=== PATIENT | female | born 1985 | race Hispanic/Latino ===

== ENCOUNTER 2024-06-13 17:14 | Emergency (ER) | payer OTHER, SELFPAY ==
[2024-06-13 17:21] VITALS: BP 113/75
[2024-06-13 17:25] VITALS: BP 113/75
[2024-06-13] MEDS: BENADRYL 25 MG IV (17:27)
[2024-06-13] MEDS: DECADRON 8 MG IV (17:27)
[2024-06-13] MEDS: PEPCID 20 MG IV (17:28)
[2024-06-13] MEDS: ADRENALIN 0.3 MG IM (17:31)
[2024-06-13] MEDS: NSS 500 IV (17:31)
[2024-06-13 17:35] VITALS: BMI 45.9
[2024-06-13 17:51] LABS: % Basophils 0.3 % (0-2); % Eosinophils 4.3 % (0-6); % Immature Granulocytes 0.4 % (0-0.5); % Lymphocytes 30.6 % (20.5-51.1); % Monocytes 5.6 % (1.7-9.3); % Neutrophils 58.8 % (42.2-75.2); Absolute Eosinophils 0.3 10^3/uL (0-0.7); Absolute Lymphocytes 2.4 10^3/uL (1.2-3.4); Absolute Monocytes 0.4 10^3/uL (0.1-0.6); Absolute Neutrophils 4.7 10^3/uL (1.4-6.5); Hematocrit 39.8 % (37.0-47.0); Mean Corp Hgb Conc. 32.7 g/dL (33.0-37.0); Mean Corpuscular Hgb 22.1 pg (27.0-31.0); Mean Corpuscular Volume 67.6 fL (81.0-99.0); Mean Platelet Volume 8.2 fL (7.4-10.4); Nucleated Red Blood Cells % 0 %; Platelet Count 389 10^3/uL (130-400); Red Blood Cell Count 5.89 10^6/uL (4.20-5.40); Red Cell Dist. Width 15.4 % (11.5-14.5); White Blood Cell Count 7.9 10^3/uL (4.8-10.8)
[2024-06-13 18:00] VITALS: BP 118/64
[2024-06-13 18:05] LABS: Blood Urea Nitrogen 11 mg/dl (7-17); Calcium 9.7 mg/dl (8.4-10.2); Carbon Dioxide 26 mmol/L (22-30); Chloride 106 mmol/L (98-107); Estimated Creatinine Clearance 112 ml/min; Glucose 101 mg/dl (70-99); Potassium 4.2 mmol/L (3.5-5.1); Sodium 139 mmol/L (135-145); eGFR > 60.00
[2024-06-13 18:07] LABS: HCG, Serum Qualitative Screen Negative
[2024-06-13 18:50] VITALS: BP 128/63
[2024-06-13 19:00] VITALS: BP 123/63
--- NOTE | 2024-06-13 19:45 | ED.GENMED ---
History of Present Illness
General
Chief Complaint: Allergic Reaction
Time Seen by Provider: 06/13/24 17:24
History of Present Illness
History of Present Illness:
Patient started with runny nose itching of her eyes midmorning. Late this afternoon she noted bilateral eye swelling. She had some wheezing prior to ER arrival. She took Benadryl at home. She did use 2 puffs of an inhaler. She has had previous
similar episodes
Past History
Past History
ED Past Medical History: Psychiatric (Depression)
ED Past Surgical History: Cholecystectomy and
Social History
Tobacco: Non-smoker
Personal:
Living: with family
Phy Exam
Physical Exam
Physical Exam:
GENERAL: Alert and oriented in no apparent distress
EYE: Significant chemotic swelling to both periorbital areas. Some conjunctival chemotic injection.
NECK: Supple, no significant adenopathy.
ENT: Pharynx without erythema. No drooling or stridor. Speech normal.
CARDIAC: Regular rate and rhythm without any obvious murmurs.
LUNGS: Clear breath sounds,normal
ABDOMEN: Soft, without focal tenderness or distention
NEUROLOGICAL: Alert and oriented , grossly non-focal
SKIN: Warm and dry, no rash or lesion, no discoloration, skin intact. No hives
MUSCULOSKELETAL: No edema,no deformity.Good color
PSYCH: Normal and appropriate interaction.
Course
Orders/Labs/Results
Orders:
Orders
06/13/24 17:25
Dexamethasone Sod Phosphate [Decadron] 8 mg .ROUTE .STK-MED ONE
Diphenhydramine [Benadryl] 50 mg .ROUTE .STK-MED ONE
Famotidine [Pepcid] 20 mg .ROUTE .STK-MED ONE
06/13/24 17:26
Cardiac Monitoring- Treatment ONCE
IV Insert/Care/Rem.- Treatment PRN
0.9% Sodium Chloride 500 ml [Nss] 500 ml IV BOLUS
Dexamethasone Sod Phosphate [Decadron] 8 mg IV NOW STA
Diphenhydramine [Benadryl] 25 mg IV NOW STA
EPINEPHrine PF [Adrenalin] 0.3 mg IM NOW STA
Famotidine [Pepcid] 20 mg IV NOW STA
Pulse Ox/cont/shift [RESP] Stat
Quantity: 1
06/13/24 17:27
Dexamethasone Sod Phosphate [Decadron] 8 mg IV NOW STA
06/13/24 17:28
Test Result ONCE
06/13/24 17:36
Basic Metabolic Panel Urgent
Complete Blood Count/With Diff Urgent
HCG, Serum Qualitative Screen Urgent
Abnormal Lab Results
06/13/24
17:36
RBC 5.89 H 10^6/uL
(4.20-5.40)
MCV 67.6 L fL
(81.0-99.0)
MCH 22.1 L pg
(27.0-31.0)
MCHC 32.7 L g/dL
(33.0-37.0)
RDW 15.4 H %
(11.5-14.5)
Glucose 101 H mg/dl
(70-99)
06/13/24 17:36
06/13/24 17:36
Vital Signs
Initial and Last Documented VS:
Initial Vital Signs
Pulse Resp BP Pulse Ox
88 12 113/75 96
06/13/24 17:21 06/13/24 17:21 06/13/24 17:21 06/13/24 17:21
Last Documented Vital Signs
Temp Pulse Resp BP Pulse Ox
98.2 F 82 13 118/64 97
06/13/24 17:26 06/13/24 18:00 06/13/24 18:00 06/13/24 18:00 06/13/24 17:30
MDM/Problems Addressed
Differential Diagnosis Includes:
Patient is initially presented with bilateral eye swelling. No airway issues. No other systemic issues. Clinically stable. With previous history is of more severe reactions I did elect to treat with epinephrine additional H1 honey, H2 honey,
steroids.
*Critical Care Note
Total Time (30-74mins, 75-104mins- exclusive of procedures): Not Applicable
Data Reviewed
Review of Other/Old Records Reveals: Labs and Records
Update Note
Update Note:
Patient rechecked multiple times and is doing well. Eye swelling is decreased. Her eyes are able to open. She has remained in no respiratory distress. Airways remain clear. She has no hives. She has no vital sign issues. Clinically stable for
discharge.
Patient instructed to use her EpiPen with any life-threatening type of allergic reaction. She has an EpiPen at home. She did not use it today
ED Attending Note
-
Portions of this chart may have been created with voice recognition software.� Occasional wrong word or��sound alike� substitutions may have occurred due to the inherent limitations of voice recognition software.
Discharge Plan
Departure
Patient Disposition: Home (Routine Discharge)
Date of Disposition: 06/13/24
Time of Disposition: 19:46
Patient with high blood pressure during this ER visit?: No
Discharge Problem:
Acute allergic reaction
Instructions: Allergic Reaction ED
Prescriptions:
New
prednisone 50 mg tablet
50 mg PO DAILY Qty: 4 0RF
No Action
cetirizine 10 mg Tablet
10 mg PO DAILY Qty: 30 0RF
atorvastatin 20 mg tablet
20 mg PO DAILY
Mounjaro 5 mg/0.5 mL pen injector
5 mg SC MO
metformin 500 mg tablet
500 mg PO BIDWMEAL
Referrals:
Annie Brian MD [Family Provider] - Follow up in 2-3 days
Activity Restrictions/Additional Instructions:
Follow-up closely with your primary physician and charge nurse
Take Benadryl or Claritin or Priya for the next few days
Take the Pepcid a day for the next for 5 days
Take prednisone as directed
Interventions
Interventions:
*Risk Screen - Suicide Last Done: 06/13/24 17:37
*General Assessment Last Done: 06/13/24 17:37
*Neglect/Abuse Screening Last Done: 06/13/24 17:37
ED- Fall Risk Assessment Last Done: 06/13/24 17:37
*ED COVID-19 Vaccine History Last Done: 06/13/24 17:37
ED- Cardiac Assessment Last Done: 06/13/24 17:37
ED- Pulmonary Assessment Last Done: 06/13/24 17:38
ED-Skin Assessment Last Done: 06/13/24 17:38
Discharge Date and Time
Print Language: K[place]IL[place]
[2024-06-13 20:00] VITALS: BP 118/58
== END 2024-06-13 20:56 | disposition home or self-care (01) ==
LOC: EMR 17:14
PROVIDERS: EMERGENCY PHYSICIAN Emergency Medicine; FAMILY PHYSICIAN Family Medicine
DX: T78.40XA Allergy, unspecified, initial encounter (principal); X58.XXXA Exposure to other specified factors, initial encounter
CPT/HCPCS: 99284; 96374; 96375 ×2; 96361; 96372; 80048; 84703; 85025; 93005

== ENCOUNTER 2024-09-14 08:48 | Emergency (ER) | payer OTHER, SELFPAY ==
[2024-09-14 08:51] VITALS: BP 132/77
[2024-09-14] MEDS: TORADOL 15 MG IV (09:39)
[2024-09-14 09:55] LABS: Urine Albumin Trace (Neg - Trace); Urine Bilirubin 1+ (Negative); Urine Character Clear (Clear); Urine Color Yellow; Urine Glucose Negative (Negative); Urine Ketone 3+ (Negative); Urine Leukocyte 1+ (Negative); Urine Nitrite Negative (Negative); Urine Occult Blood 4+ (Negative); Urine Urobilinogen 2+ (Neg - 1+); Urine pH 6.5 (5.0-9.0)
--- NOTE | 2024-09-14 09:55 | ED.GENMED ---
History of Present Illness
General
Chief Complaint: Abdominal Pain
Source: patient
Exam Limitations: none
Time Seen by Provider: 09/14/24 09:10
Nursing documentation reviewed up to this point in time: agreed with
History of Present Illness
History of Present Illness:
39-year-old female past medical history of asthma and diabetes presenting to the emergency department today with concerns of diffuse abdominal pain to the mid abdomen with radiation to the low back with associated nausea no vomiting. Does have a
history of cholecystectomy. Denies vomiting diarrhea constipation or fevers.
Past History
Past History
ED Past Medical History: Psychiatric (Depression)
ED Past Surgical History: Cholecystectomy and
Social History
Tobacco: Non-smoker
Personal:
Living: with family
Review of Systems
Review of Systems
Allergies reviewed?: Yes
All Other Systems: ROS reviewed and negative except as documented in HPI and ROS
Phy Exam
Physical Exam
Physical Exam:
GENERAL: Alert , in no apparent distress
EYE: pupils equal and reactive
NECK: Supple, no significant adenopathy.
ENT: o/p clr, mmm.
CARDIAC: Regular rate and rhythm .
LUNGS: Clear breath sounds bilaterally, no acute respiratory distress, no wheezes/rales/rhonchi
ABDOMEN: Vague abdominal discomfort throughout the abdomen mainly to the mid abdomen. No significant CVA tenderness to palpation or percussion.
NEUROLOGICAL: Alert and oriented, no focal neuro deficits
SKIN: Warm and dry, skin intact.
MUSCULOSKELETAL: No edema, well perfused.
PSYCH: Normal and appropriate interaction.
Course
Orders/Labs/Results
Orders:
Orders
09/14/24 09:24
Ketorolac [Toradol] 15 mg IV NOW STA
09/14/24 09:25
CT Abd/Pel (IV only)-DH only Urgent
Comment:
Reason For Exam: mid abd pain, hx oumou
Test Result ONCE
09/14/24 09:31
Complete Blood Count/With Diff Urgent
Comprehensive Metabolic Panel Urgent
HCG, Serum Qualitative Screen Urgent
Lipase Urgent
Urinalysis Reflex To Culture Urgent
Date Specimen was Collected: 09/14/24
Time Specimen was Collected: 09:29
Urine Microscopic Reflex Cult Urgent
Urine Culture Urgent
PEGGY Source: U
Specimen Description:
Date Specimen was Collected: 09/14/24
Time Specimen was Collected:
09/14/24 10:46
Morphine Sulfate 4 mg IV NOW STA
Ondansetron Injectable [Zofran] 4 mg IV NOW STA
09/14/24 11:26
Amoxicillin 875 mg/Clav 125 mg [Augmentin 875 mg/125 mg] 1 tablet PO NOW STA
Abnormal Lab Results
09/14/24
09:31
RBC 5.66 H 10^6/uL
(4.20-5.40)
MCV 67.7 L fL
(81.0-99.0)
MCH 21.7 L pg
(27.0-31.0)
MCHC 32.1 L g/dL
(33.0-37.0)
RDW 15.2 H %
(11.5-14.5)
Absolute Neuts (auto) 6.9 H 10^3/uL
(1.4-6.5)
Creatinine 0.5 L mg/dL
(0.6-1.0)
Urine Ketones 3+ A
(Negative)
Ur Occult Blood Reflex 4+ A
(Negative)
Urine Bilirubin 1+ A
(Negative)
Urine Urobilinogen 2+ A
(Neg - 1+)
Leukocyte Esterase Rfl 1+ A
(Negative)
Urine RBC 7-10 A /HPF
(0-2)
Urine Bacteria (Reflex) Few A
(Negative)
09/14/24 09:31
09/14/24 09:31
Vital Signs
Initial and Last Documented VS:
Initial Vital Signs
Temp Pulse Resp BP Pulse Ox
97.8 F 93 18 132/77 98
09/14/24 08:51 09/14/24 08:51 09/14/24 08:51 09/14/24 08:51 09/14/24 08:51
Last Documented Vital Signs
Temp Pulse Resp BP Pulse Ox
97.8 F 93 18 123/77 93
09/14/24 08:51 09/14/24 08:51 09/14/24 08:51 09/14/24 11:00 09/14/24 11:15
MDM/Problems Addressed
MDM/Problems Addressed:
39-year-old female presenting to the emergency department with concerns of vague diffuse abdominal pain worsening over the past 3 days. Associated nausea no vomiting no changes in bowel movements no fevers. Vital signs are normal upon arrival. CT
scan performed considering the patient's reproducible abdominal pain. She was found to have diverticulitis. She was started on Augmentin and will follow-up closely with GI and her primary care doctor. Otherwise she was found to have an ovarian
cyst she was advised for close gynecology follow-up the next few weeks for reassessment and repeat imaging. Otherwise stable for outpatient management. Return precautions given.
*Critical Care Note
Total Time (30-74mins, 75-104mins- exclusive of procedures): Not Applicable
ED Attending Note
-
Portions of this chart may have been created with voice recognition software.� Occasional wrong word or��sound alike� substitutions may have occurred due to the inherent limitations of voice recognition software.
Discharge Plan
Departure
Patient Disposition: Home (Routine Discharge)
Date of Disposition: 09/14/24
Time of Disposition: 11:27
Patient with high blood pressure during this ER visit?: No
Condition: Good
Covid-19: Not Applicable
Discharge Problem:
Diverticulitis, Ovarian cyst
Instructions: Diverticulitis (DC), Ovarian Cyst (DC)
Prescriptions:
New
amoxicillin-pot clavulanate 875-125 mg tablet
1 tab PO BID 7 Days Qty: 14 0RF
No Action
cetirizine 10 mg Tablet
10 mg PO DAILY Qty: 30 0RF
atorvastatin 20 mg tablet
20 mg PO DAILY
Mounjaro 5 mg/0.5 mL pen injector
5 mg SC MO
metformin 500 mg tablet
500 mg PO BIDWMEAL
prednisone 50 mg tablet
50 mg PO DAILY Qty: 4 0RF
Referrals:
Annie Brian MD [Family Provider] -
Jaspreet Noel MD [Active] - Follow up in 5-7 days
Activity Restrictions/Additional Instructions:
You came to the emergency department today with concerns of abdominal pain. You are found to have diverticulitis. Please take Augmentin twice daily for the next of an days. You are also found have an ovarian cyst. Please follow closely with your
warehouse freight handler few weeks. Return to the emergency department for any worsening, new or concerning symptoms.
Interventions
Interventions:
*Risk Screen - Suicide Last Done: 09/14/24 08:51
*General Assessment Last Done: 09/14/24 08:51
*Neglect/Abuse Screening Last Done: 09/14/24 08:51
ED- Fall Risk Assessment Last Done: 09/14/24 09:29
*ED COVID-19 Vaccine History Last Done: 09/14/24 08:51
FG-Xtkgpy-Vvzybrxmax Assessment Last Done: 09/14/24 09:29
Discharge Date and Time
Print Language: PERSIAN
[2024-09-14 09:57] LABS: % Basophils 0.3 % (0-2); % Eosinophils 1.4 % (0-6); % Immature Granulocytes 0.2 % (0-0.5); % Lymphocytes 22.5 % (20.5-51.1); % Monocytes 5.1 % (1.7-9.3); % Neutrophils 70.5 % (42.2-75.2); Absolute Eosinophils 0.1 10^3/uL (0-0.7); Absolute Lymphocytes 2.2 10^3/uL (1.2-3.4); Absolute Monocytes 0.5 10^3/uL (0.1-0.6); Absolute Neutrophils 6.9 10^3/uL (1.4-6.5); Hematocrit 38.3 % (37.0-47.0); Hemoglobin 12.3 g/dL (12.0-16.0); Mean Corp Hgb Conc. 32.1 g/dL (33.0-37.0); Mean Corpuscular Hgb 21.7 pg (27.0-31.0); Mean Corpuscular Volume 67.7 fL (81.0-99.0); Mean Platelet Volume 8.3 fL (7.4-10.4); Nucleated Red Blood Cells % 0 %; Platelet Count 328 10^3/uL (130-400); Red Blood Cell Count 5.66 10^6/uL (4.20-5.40); Red Cell Dist. Width 15.2 % (11.5-14.5); White Blood Cell Count 9.7 10^3/uL (4.8-10.8)
[2024-09-14 10:05] LABS: HCG, Serum Qualitative Screen Negative
[2024-09-14 10:08] LABS: ALT (SGPT) 35 U/L (0-35); AST (SGOT) 33 U/L (14-36); Albumin 3.9 g/dl (3.5-5.0); Alkaline Phosphatase 94 U/L (38-126); Blood Urea Nitrogen 7 mg/dl (7-17); Carbon Dioxide 24 mmol/L (22-30); Chloride 105 mmol/L (98-107); Glucose 91 mg/dl (70-99); Lipase 28 U/L (23-300); Potassium 3.8 mmol/L (3.5-5.1); Sodium 140 mmol/L (135-145); Total Bilirubin 0.7 mg/dl (0.2-1.3); Total Protein 6.6 g/dl (6.3-8.2); eGFR > 60.00
[2024-09-14] MEDS: MORPHINE SULFATE 4 MG IV (10:50)
[2024-09-14] MEDS: ZOFRAN 4 MG IV (10:50)
[2024-09-14 11:00] VITALS: BP 123/77
[2024-09-14 11:03] LABS: Urine Squamous Cell >30 /LPF (Few)
[2024-09-14 11:04] LABS: Urine Bacteria Few (Negative)
[2024-09-14 11:05] LABS: Urine Mucus Many
[2024-09-14] MEDS: AUGMENTIN 875 MG/125 MG 1 TABLET PO (11:33)
== END 2024-09-14 11:49 | disposition home or self-care (01) ==
LOC: EMR 08:48
PROVIDERS: Physician Assistant; EMERGENCY PHYSICIAN Emergency Medicine; FAMILY PHYSICIAN Family Medicine
DX: K57.32 Diverticulitis of large intestine without perforation or abscess without bleeding (principal); N83.209 Unspecified ovarian cyst, unspecified side; R10.84 Generalized abdominal pain; J45.909 Unspecified asthma, uncomplicated; E11.9 Type 2 diabetes mellitus without complications; Z90.49 Acquired absence of other specified parts of digestive tract
CPT/HCPCS: 99284; 96374; 96375; 74177; 80053; 81003; 81015; 83690; 84703; 85025; 87086; Q9967

== ENCOUNTER 2024-09-14 18:03 | Emergency (ER) | payer OTHER, SELFPAY ==
--- NOTE | 2024-09-14 18:24 | ED.GENMED ---
History of Present Illness
General
Chief Complaint: Allergic Reaction
Source: patient
Exam Limitations: none
Time Seen by Provider: 09/14/24 18:15
History of Present Illness
History of Present Illness:
39-year-old female presents for reevaluation. She was here earlier today diagnosed with diverticulitis. Throughout her stay she received morphine, Toradol, Zofran and then a dose of oral Augmentin. She was discharged then several hours after
being discharged she developed periorbital swelling throat itching and scratching with a sensation of tongue swelling. She took 25 mg of Benadryl at home when she presented here. Denies any new abdominal pain or vomiting. She denies a rash
otherwise. She thinks she has had amoxicillin products in the past without any issues. She also has had morphine in the past without any issues.
Past History
Past History
ED Past Medical History: Psychiatric (Depression)
ED Past Surgical History: Cholecystectomy and
Social History
Tobacco: Non-smoker
Personal:
Living: with family
Phy Exam
Physical Exam
Physical Exam:
General: Well-developed female no acute respiratory distress
HEENT: Normocephalic periorbital swelling noted posterior pharynx is patent no obvious tongue swelling neck is supple
Heart: Regular rate and rhythm
Lungs: Clear no wheeze or stridor
Abdomen is soft nontender
Extremities: No cyanosis
Skin is warm no rash
Course
Orders/Labs/Results
Orders:
Orders
09/14/24 18:19
Dexamethasone Pf [Decadron] 10 mg .ROUTE .STK-MED ONE
Diphenhydramine [Benadryl] 50 mg .ROUTE .STK-MED ONE
Famotidine [Pepcid] 20 mg .ROUTE .STK-MED ONE
09/14/24 18:23
Dexamethasone Sod Phosphate [Decadron] 10 mg IV NOW STA
Diphenhydramine [Benadryl] 25 mg IV NOW STA
Famotidine [Pepcid] 20 mg IV NOW STA
09/14/24 19:34
EPINEPHrine PF [Adrenalin] 0.3 mg IM NOW STA
Vital Signs
Initial and Last Documented VS:
Initial Vital Signs
Temp Pulse Resp Pulse Ox
98.4 F 96 18 97
09/14/24 18:06 09/14/24 18:06 09/14/24 18:06 09/14/24 18:06
Last Documented Vital Signs
Temp Pulse Resp BP Pulse Ox
98.4 F 105 17 115/62 88
09/14/24 18:06 09/14/24 21:00 09/14/24 21:00 09/14/24 21:00 09/14/24 21:00
MDM/Problems Addressed
Differential Diagnosis Includes:
Patient with periorbital swelling and throat itching after being given medicine here earlier today for diverticulitis. She could be allergic to either 1 of those medications but most likely would be the antibiotic given the delayed time of onset as
opposed to the IV medications. Decadron Benadryl Pepcid ordered.
Review of chart shows that she was here in 2021 for diverticulitis and had Levaquin and Flagyl and did not have any reaction
*Critical Care Note
Total Time (30-74mins, 75-104mins- exclusive of procedures): Not Applicable
Update Note
Update Note:
Patient reevaluated appears much better feels much better. Will prescribe several more days of prednisone and have her stop Augmentin and replace the Augmentin with Levaquin and Flagyl for diverticulitis. Will also replace her EpiPen prescription.
Stable for discharge
ED Attending Note
-
Portions of this chart may have been created with voice recognition software.� Occasional wrong word or��sound alike� substitutions may have occurred due to the inherent limitations of voice recognition software.
Discharge Plan
Departure
Patient Disposition: Home (Routine Discharge)
Date of Disposition: 09/14/24
Time of Disposition: 21:22
Patient with high blood pressure during this ER visit?: No
Discharge Problem:
Allergic reaction
Instructions: Adverse Drug Reactions, Adult (DC)
Prescriptions:
New
prednisone 20 mg tablet
40 mg PO DAILY 5 Days Qty: 10 0RF
epinephrine [EpiPen] 0.3 mg/0.3 mL auto-injector
0.3 mg IM .STAT PRN (Reason: anaphylaxis) Qty: 1 0RF
levofloxacin 500 mg tablet
500 mg PO DAILY 7 Days Qty: 7 0RF
metronidazole 500 mg tablet
500 mg PO TID Qty: 21 0RF
No Action
cetirizine 10 mg Tablet
10 mg PO DAILY Qty: 30 0RF
atorvastatin 20 mg tablet
20 mg PO DAILY
Mounjaro 5 mg/0.5 mL pen injector
5 mg SC MO
metformin 500 mg tablet
500 mg PO BIDWMEAL
prednisone 50 mg tablet
50 mg PO DAILY Qty: 4 0RF
amoxicillin-pot clavulanate 875-125 mg tablet
1 tab PO BID 7 Days Qty: 14 0RF
Referrals:
UNKNOWN - PT DOES,NOT KNOW [Family Provider] -
Activity Restrictions/Additional Instructions:
You may start prednisone tomorrow. Start new antibiotic tomorrow. Stop Augmentin. Continue with Benadryl every 4 hours as needed for allergic reaction. Return if worse otherwise follow-up with family doctor
Interventions
Interventions:
*Risk Screen - Suicide Last Done: 09/14/24 18:29
*General Assessment Last Done: 09/14/24 18:29
*Neglect/Abuse Screening Last Done: 09/14/24 18:29
ED- Fall Risk Assessment Last Done: 09/14/24 18:29
*ED COVID-19 Vaccine History Last Done: 09/14/24 18:29
ED- Cardiac Assessment Last Done: 09/14/24 18:29
ED- Pulmonary Assessment Last Done: 09/14/24 19:15
ED-Skin Assessment Last Done: 09/14/24 19:15
Discharge Date and Time
Print Language: MICRONES[place]
[2024-09-14] MEDS: PEPCID 20 MG IV (18:27)
[2024-09-14] MEDS: BENADRYL 25 MG IV (18:27)
[2024-09-14] MEDS: DECADRON IV (18:34)
[2024-09-14] MEDS: DECADRON 10 MG IV (18:36)
[2024-09-14 19:13] VITALS: BP 116/71
[2024-09-14] MEDS: ADRENALIN 0.3 MG IM (19:46)
[2024-09-14 19:48] VITALS: BP 119/67
[2024-09-14 20:00] VITALS: BP 122/65
[2024-09-14 21:00] VITALS: BP 115/62
[2024-09-14 22:05] VITALS: BP 126/73
== END 2024-09-14 22:05 | disposition home or self-care (01) ==
LOC: EMR 18:03
PROVIDERS: EMERGENCY PHYSICIAN Emergency Medicine
DX: T78.40XA Allergy, unspecified, initial encounter (principal); Y92.9 Unspecified place or not applicable; Z90.49 Acquired absence of other specified parts of digestive tract
CPT/HCPCS: 96372; 96374; 96375; 99282